=== PATIENT | male | born 1955 | race Caucasian/White ===

== ENCOUNTER → 2016-11-15 | Outpatient (CLI) | payer OTHER ==
[~2016-11-15] VITALS: Ht 172.7 cm; Wt 93.0 kg
[~2016-11-15] MED LIST: ASPIR 8181 MG PO; IMDUR 30 MG TAB30 M1 PO; LIPITOR10 MG PO; NEURONTIN600 MG PO; OXYCONTIN20 M1 PO; TOPROL XL25 MG PO; ZANAFLEX4 MG PO
--- NOTE | ~2016-11-15 | EKG ---
[place] [address] [address] [facility] [place] [address] ELECTROCARDIOGRAM REPORT Name: YESENIA ALLEN [facility] [id number] Admission: 11/15/16 Attend Phys: Richie Valencia MD Discharge: Date of : 51 Report #: [id number] THIS REPORT FOR: //name// [facility] Test Date: 2016-11-15 Test Time: 08:36:49 Pat Name: YESENIA ALLEN Department: Room: Gender: Jewelry Designer: Easton MÉNDEZ : 1955 Requested By: Richie Valencia Order Number: [id number] MD: Manuel Cho Measurements Intervals [place] Rate: 49 P: 47 DC: 190 QRS: 1 QRSD: 85 T: 34 QT: 453 QTc: 409 Interpretive Statements Sinus bradycardia RSR' in V1 or V2, right VCD ST elevation suggests acute pericarditis versus early repolarization No previous ECG available for comparison Electronically Signed On 11-16-2016 8:46:26 CDT by Manuel Cho [email or web address] <ELECTRONICALLY SIGNED> By: Manuel Cho MD, [facility] 11/16/16 0846 5 5 Manuel Cho MD, [facility] /EPI
--- NOTE | ~2016-11-15 | CATHLAB ---
[facility] [address] [place] [address] INVASIVE PROCEDURE REPORT Name: TIFFANYYESENIA CHAKRABORTY Room #: REG Gee#: [id number] Admission: 11/15/16 Attend Phys: Richie Valencia MD Discharge: Date of : 51 Date of Service: 11/15/161821 Report #: [id number] THIS REPORT FOR: //name// APPROVED REPORT Patient Details Patient Status: Out-Patient Room #: The patient is a 61 year-old male Indication Unstable angina Risk Factors Hypercholesterolemia, Hypertension Procedure Narrative The Right Groin^ was infiltrated with 1% Lidocaine subcutaneous anesthesia. A PINNACLE 4FR Sheath #[id number] sheath was inserted into the RFA^. Coronary angiography was performed using coronary diagnostic catheters. The right coronary system was accessed and visualized with a JR4 catheter. The left coronary system was accessed and visualized with a JL4 catheter. The left ventricle was accessed and visualized with a PIGTAIL catheter. Left ventricular/Aortic Valve gradient assessed via catheter pullback. Left ventriculogram was performed in 30 degree projection. Hemostasis was obtained with manual pressure following sheath removal without any complications. The patient tolerated the procedure well and there were no complications associated with the procedure. There was no hematoma. Intraoperative Conscious Sedation Sedation start time: 1120 Case end Time: 113 Fentanyl 50.0 mcg Versed 1.0 mg Fluoro Time: 1.45 minutes Dose: DAP 3931 cGycm2 506 mGy Contrast Type and Amount: Omnipaque 95 ml Coronary Angiography The patient's coronary anatomy is co- dominant. [place] Artery Percent Stenosis Left Main: 0 % Prox LAD: 30 % Mid/Distal LAD: % Circumflex: 20 % RCA: 20 % Ramus: % [facility] [address] [place] [address] INVASIVE PROCEDURE REPORT Name: YESENIA ALLEN Room #: REG COUNT INCLUDES THE [facility]#: [id number] Admission: 11/15/16 Attend Phys: Richie Valencia MD Discharge: Date of : 51 Date of Service: 11/15/161821 Report #: [id number] Diagnostic Cath Diagonal 2 Small-caliber vessel with mild stenosis at the ostium. OM1 Moderate size caliber vessel, with mild stenosis in proximal segment. Hemodynamics The aortic pressure is 165/83 mmHg with a mean of 115 mmHg. The left ventricular pressure is 165/17 mmHg with a mean of mmHg. The left ventricular end diastolic pressure is 35 mmHg. There was no gradient across the aortic valve upon pullback. Pullback from the left ventricle to the aorta revealed no gradient across the aortic valve. Conclusion Mild disease as described above. Recommend medical therapy. Recommendations Medical Therapy <ELECTRONICALLY SIGNED> By: Richie Valencia MD 11/15/161821 21 1822 Richie Valencia MD /INF
[2016-11-15 08:30] LABS: HEMATOCRIT 42.5 % (42.0-52.0); HEMOGLOBIN 14.4 gm/dL (14.0-18.0); MCH 30.2 pg (26.0-34.0); MCHC 33.9 g/dL (28.0-37.0); MCV 89.3 fL (80.0-100.0); RBC 4.76 mil/uL (4.50-6.00); RDW 12.7 % (10.5-14.5); WBC 6.1 thou/uL (4.0-11.0)
[2016-11-15 08:35] VITALS: BP 148/76
[2016-11-15 08:39] LABS: CALCIUM 8.8 mg/dL (8.5-10.1); CREATININE 1.2 mg/dL (0.7-1.3)
== END ==
LOC: CATH 08:01
PROVIDERS: Internal Medicine Cardiovascular Disease
DX: I25.10 Atherosclerotic heart disease of native coronary artery without angina pectoris (principal); I10 Essential (primary) hypertension; E78.00 Pure hypercholesterolemia, unspecified; I25.2 Old myocardial infarction; K21.9 Gastro-esophageal reflux disease without esophagitis; Z87.891 Personal history of nicotine dependence; Z82.49 Family history of ischemic heart disease and other diseases of the circulatory system; Z79.82 Long term (current) use of aspirin; Z79.899 Other long term (current) drug therapy

== ENCOUNTER → 2017-07-11 | Outpatient (CLI) | payer OTHER ==
[2017-07-11 13:48] LABS: CREATININE 1.3 mg/dL (0.7-1.3)
== END ==
LOC: CAT 13:08
PROVIDERS: Family Medicine
DX: M54.2 Cervicalgia (principal); R51 Headache; R06.00 Dyspnea, unspecified; R60.0 Localized edema; M79.9 Soft tissue disorder, unspecified

== ENCOUNTER → 2017-10-07 | Outpatient (CLI) | payer OTHER ==
[2017-10-07 09:15] LABS: CREATININE 1.2 mg/dL (0.7-1.3)
== END ==
LOC: CAT 08:33
PROVIDERS: Family Medicine
DX: J98.4 Other disorders of lung (principal); M48.04 Spinal stenosis, thoracic region; M40.204 Unspecified kyphosis, thoracic region; I25.10 Atherosclerotic heart disease of native coronary artery without angina pectoris; K82.8 Other specified diseases of gallbladder; M25.78 Osteophyte, vertebrae; K76.0 Fatty (change of) liver, not elsewhere classified

== ENCOUNTER → 2018-03-27 | Outpatient (CLI) | payer OTHER | LOC: RAD 15:27 | DX: R07.81 Pleurodynia (principal); R22.42 Localized swelling, mass and lump, left lower limb; M79.9 Soft tissue disorder, unspecified ==

== ENCOUNTER → 2018-04-06 | Outpatient (CLI) | payer OTHER | LOC: RAD 13:58 | DX: S92.251A Displaced fracture of navicular [scaphoid] of right foot, initial encounter for closed fracture (principal); M19.071 Primary osteoarthritis, right ankle and foot; W19.XXXA Unspecified fall, initial encounter; Y93.89 Activity, other specified; Y92.89 Other specified places as the place of occurrence of the external cause; Y99.8 Other external cause status ==

== ENCOUNTER → 2019-02-19 | Outpatient (CLI) | payer OTHER ==
--- NOTE | 2019-02-21 16:09 | PATH ---
[facility] [address] [place] [address] PATHOLOGY RPT PROCEDURE Name: GLENN ALLEN Room #: REG DION Hackett.#: [id number] Admission: 02/19/19 Date of : 51 Discharge: Report #: [id number] Path Case #: [id number] [facility] Accession Number: [id number] . 01 Material submitted: . PART A: stomach - RANDOM GASTRIC BIOPSY R/O H PYLORI PART B: esophagus - DISTAL ESOPHAGUS H/O BARRETTS. Modifiers: distal PART C: esophagus - DISTAL ESOPHAGUS NODULE. Modifiers: distal PART D: colon - SIGMOID COLON POLYP. Modifiers: sigmoid . 01 Clinical history: . Pre-op diagnosis: GERD; history of Davis's; screening Post-op diagnosis: Esophageal nodule; polyps A. R/O H. pylori B. History of Davis's . 02 Diagnosis: A. Gastric mucosa, random gastric R/O H. pylori, endoscopic biopsy: - Mild reactive gastropathy. - Negative for intestinal metaplasia or atrophy. - Negative for Helicobacter pylori (properly controlled immunohistochemical stain performed). . B. Gastroesophageal mucosa, distal esophagus H/O Davis's, endoscopic biopsy: - Specialized columnar epithelium (gastric-type mucosa) with intestinal metaplasia, consistent with the provided history of Davis's metaplasia. - Negative for dysplasia. - Squamous mucosa with mild esophagitis. . C. Squamous mucosa, distal esophagus nodule, endoscopic biopsy: - Compatible with a benign squamous papilloma. - Negative for dysplasia or malignancy. . D. Polyp, sigmoid colon polyp, endoscopic biopsy: - One fragment showing tubulovillous adenoma; negative for high-grade dysplasia. - Remainder of fragments showing hyperplastic polyp without any dysplasia. (IUV:arlene; 02/21/2019) QMS 02/21/2019 1345 Local . 02 Electronically signed: . Leonela Spears MD, Pathologist NPI- [id number] . 01 Gross description: . A. The specimen is received in formalin, labeled "ayo Webb [address] [address] PATHOLOGY RPT PROCEDURE Name: GLENN ALLEN Room #: REG CL Gee#: [id number] Admission: 02/19/19 Date of : 51 Discharge: Report #: [id number] Path Case #: [id number] gastric biopsy". Received are seven segments of pale chavez soft tissue ranging in size from 0.3 to 0.6 cm in maximum dimensions. The specimen is submitted entirely in cassette A1. . B. The specimen is received in formalin, labeled "Glenn Tyree, distal esophagus". Received are seven segments of pale chavez soft tissue ranging in size from 0.3 to 0.4 cm in maximum dimensions. The specimen is submitted entirely in cassette B1. . C. The specimen is received in formalin, labeled "Glenn Tyree, distal esophagus nodule". Received is a segment of pale chavez soft tissue measuring 0.4 cm in maximum dimensions. The specimen is submitted entirely in cassette C1. . D. The specimen is received in formalin, labeled "Glennmukund Allen, sigmoid colon polyp". Received are three segments of pale chavez soft tissue ranging in size from 0.5 to 0.8 cm in maximum dimensions. The specimen is submitted entirely in cassette D1. (CAA; 02/20/2019) QAC/QAC 02/20/2019 0909 Local . 02 Pathologist provided ICD-10: K31.9, K22.70, D13.0, D12.5 . 02 CPT . 496116, 723010, 102430, 464050, G04420 Specimen Comment: A courtesy copy of this report has been sent to Specimen Comment: [phone], . Specimen Comment: Report sent to / DR BAIRD Performed at: [address], [place] [id number] MD Curt James MD Phone: [phone] Performed at: [address] [id number] MD Leonela Spears MD Phone: [phone]
== END | disposition home or self-care (01) ==
LOC: GI 08:59
DX: Z12.11 Encounter for screening for malignant neoplasm of colon (principal); D12.5 Benign neoplasm of sigmoid colon; K64.8 Other hemorrhoids; D13.0 Benign neoplasm of esophagus; K31.9 Disease of stomach and duodenum, unspecified; K22.70 Barrett's esophagus without dysplasia; K21.0 Gastro-esophageal reflux disease with esophagitis; K25.9 Gastric ulcer, unspecified as acute or chronic, without hemorrhage or perforation; I10 Essential (primary) hypertension; E78.00 Pure hypercholesterolemia, unspecified; I25.2 Old myocardial infarction; F32.9 Major depressive disorder, single episode, unspecified; F41.9 Anxiety disorder, unspecified; Z98.890 Other specified postprocedural states; Z79.899 Other long term (current) drug therapy; Z79.82 Long term (current) use of aspirin
CPT/HCPCS: 62110; 62900

== ENCOUNTER → 2019-02-23 | Outpatient (CLI) | payer OTHER | LOC: NUC 09:37 | DX: M81.0 Age-related osteoporosis without current pathological fracture (principal) ==

== ENCOUNTER → 2020-02-29 | Outpatient (CLI) | payer OTHER | LOC: SJCVC 12:55 | PROVIDERS: ATTEND Internal Medicine Cardiovascular Disease | DX: I25.10 Atherosclerotic heart disease of native coronary artery without angina pectoris (principal); R94.31 Abnormal electrocardiogram [ECG] [EKG]; I10 Essential (primary) hypertension; E78.5 Hyperlipidemia, unspecified; K21.9 Gastro-esophageal reflux disease without esophagitis; Z79.899 Other long term (current) drug therapy; Z87.891 Personal history of nicotine dependence ==

== ENCOUNTER → 2020-03-07 | Outpatient (CLI) | payer OTHER | LOC: SJCVCIMAG 07:47 | PROVIDERS: ATTEND Internal Medicine Cardiovascular Disease | DX: I25.10 Atherosclerotic heart disease of native coronary artery without angina pectoris (principal); R00.0 Tachycardia, unspecified; I10 Essential (primary) hypertension; E78.5 Hyperlipidemia, unspecified; K21.9 Gastro-esophageal reflux disease without esophagitis; Z79.899 Other long term (current) drug therapy; Z87.891 Personal history of nicotine dependence ==

== ENCOUNTER 2020-04-02 09:44 | Inpatient (IN) | payer OTHER ==
[~2020-04-02] VITALS: Ht 170.2 cm; Wt 91.6 kg
[~2020-04-02 09:44] MED LIST changes: -NEURONTIN600 MG PO
[2020-04-02 09:46] VITALS: BP 91/43
[2020-04-02 10:22] LABS: BASOPHILS 0.7 % (0.0-2.0); EOSINOPHILS 0.4 % (0.0-3.0); HEMATOCRIT 37.4 % (42.0-52.0); HEMOGLOBIN 12.5 gm/dL (14.0-18.0); LYMPHOCYTES 14.4 % (24.0-44.0); MCH 30.8 pg (26.0-34.0); MCHC 33.3 g/dL (28.0-37.0); MCV 92.3 fL (80.0-100.0); MONOCYTES 5.7 % (1.0-8.0); POLYS 78.8 % (36.0-66.0); RBC 4.05 mil/uL (4.50-6.00); RDW 13.3 % (10.5-14.5); WBC 5.1 thou/uL (4.0-11.0)
[2020-04-02 10:42] LABS: ANION GAP 9 mmol/L (7-16); BUN 23 mg/dL (7-18); CALCIUM 8.6 mg/dL (8.5-10.1); CHLORIDE 104 mmol/L (98-107); CO2 24 mmol/L (21-32); CREATININE 2.2 mg/dL (0.7-1.3); GLUCOSE 116 mg/dL (74-106); POTASSIUM 4.4 mmol/L (3.5-5.1); SODIUM 137 mmol/L (136-145)
[2020-04-02 10:53] LABS: ALBUMIN 3.5 g/dL (3.4-5.0); MAGNESIUM 1.9 mg/dL (1.8-2.4); SGOT 44 U/L (15-37); SGPT 46 U/L (30-65); TOTAL BILIRUBIN 0.8 mg/dL (0.2-1.0); TOTAL PROTEIN 6.4 g/dL (6.4-8.2); TROPONIN-I <0.06 ng/mL (<0.06)
[2020-04-02] MEDS ORDERED: COZAAR 50 MG TA50 M1 PO (11:08)
[2020-04-02] MEDS ORDERED: OMEPRAZOLE40 MG PO (11:08)
[2020-04-02] MEDS ORDERED: LIPITOR40 MG PO (11:09)
[2020-04-02] MEDS ORDERED: CARVEDILOL12.5 MG PO (11:09)
[2020-04-02] MEDS ORDERED: NEURONTIN600 MG PO (11:40)
[2020-04-02 11:47] LABS: PLATELET COUNT 94 thou/uL (150-400); PLATELET ESTIMATE SLIGHTLY DECREASED
[2020-04-02 11:48] LABS: LARGE PLATELETS OCCASIONAL
[2020-04-02 12:34] LABS: URINE BILIRUBIN NEGATIVE (Negative); URINE BLOOD NEGATIVE (Negative); URINE CLARITY CLEAR; URINE COLOR YELLOW; URINE GLUCOSE-RANDOM* NEGATIVE (Negative); URINE KETONES NEGATIVE (Negative); URINE LEUKOCYTES-REFLEX NEGATIVE (Negative); URINE NITRITE-REFLEX NEGATIVE (Negative); URINE PROTEIN (DIPSTICK) NEGATIVE (Negative); URINE SPECIFIC GRAVITY 1.025 (1.005-1.035); URINE UROBILINOGEN 0.2 E.U./dl (0.2-1.0)
[2020-04-02 12:42] LABS: AMP/METHAMP Negative (Negative); BARBITURATES Negative (Negative); BENZODIAZEPINES Negative (Negative); COCAINE Negative (Negative); METHADONE Negative (Negative); OPIATES POSITIVE (Negative); PCP Negative (Negative)
[2020-04-02 14:45] VITALS: BP 80/50
[2020-04-02 15:10] VITALS: BP 135/63
[2020-04-02 15:17] LABS: FOLIC ACID 37.7 ng/mL (8.6-58.9)
--- NOTE | 2020-04-02 17:54 | NUR ---
ATTEMPTED TO CALL REPORT AT 6260. NURSE STATES SHE WILL CALL BACK.
[2020-04-02 18:27] VITALS: BP 135/89
[2020-04-02 19:00] VITALS: BP 113/55
[2020-04-02 23:21] VITALS: BP 137/62
[2020-04-03] VITALS (7 sets, daily range): BP systolic 82–150; BP diastolic 46–84
--- NOTE | 2020-04-03 05:47 | NUR ---
ASSUME CARE 1900. PT/VITALS STABLE. INTERMITTENT GENERALIZED PAIN NOTED WITH RELIEF FROM PAIN MEDICATION. TOLERATES ACTIVITY WELL. NO BRDYCARDIA NOTED/SR THROUGH THE SHIFT. NO DISTRESS NOTED. ASSESSMENT CHARTED. PROGRESSING WELL WITH POC. PLAN IS TO CONTINUE TO MONITOR HR AND MANAGE PAIN. WILL CONTINUE TO FOLLOW WITH POC
--- NOTE | 2020-04-03 07:06 | EKG ---
[facility] [place] [address] [address] [place] [address] ELECTROCARDIOGRAM REPORT Name: YESENIA ALLEN Room #: 203-P ADM IN M.R.#: [id number] Admission: 04/02/20 Attend Phys: George Gabriel MD Discharge: Date of : 51 Report #: [id number] THIS REPORT FOR: cc: Verito Gomez MD, Nora P. MD Santiago, Patrick MD [facility] ~ THIS REPORT FOR: //name// [facility] ED Test Date: 2020-04-02 Test Time: 10:13:53 Pat Name: YESENIA ALLEN Department: Room: 203 Gender: M Psychiatric Nurse Practitioner: EC : 1955 Requested By: Ramírez Escobar Order Number: [id number] MD: Alen Rhoades Measurements Intervals [place] Rate: 51 P: 20 MD: 177 QRS: 0 QRSD: 101 T: 29 QT: 484 QTc: 446 Interpretive Statements Sinus rhythm Borderline ST elevation, lateral leads Compared to ECG 11/15/2016 08:36:49 Sinus bradycardia no longer present Early repolarization no longer present ST (T wave) deviation still present Electronically Signed On 04-03-2020 7:06:16 MELT SUPERINTENDANT by Alen Rhoades [email or web address] <ELECTRONICALLY SIGNED> By: Alen Rhoades MD, FACC 04/03/20 0706 1013 1013 Alen Rhoades MD, FACC /EPI
[2020-04-03 09:01] LABS: CALCIUM 8.2 mg/dL (8.5-10.1); POTASSIUM 4.4 mmol/L (3.5-5.1)
[2020-04-03 09:08] LABS: CREATININE 1.2 mg/dL (0.7-1.3)
--- NOTE | 2020-04-03 13:23 | NUR ---
I have reviewed the documentation by JC RICHMOND from 04/03/20 to 04/03/20 and I concur with it. LARRY IBARRA, PT, DPT
[2020-04-04 01:30] VITALS: BP 153/75
--- NOTE | 2020-04-04 01:58 | NUR ---
PT ALERT AND ORIENTED WITH PERIODS OF FORGETFULNESS TO CORRECT PLACE AND DATE ETC. PRESENTLY HE IS ALERT AND APPROPRIATE. INSTRUCTED ON FALL PRECAUTIONS AND NOT TO GET OOB WITHPUT HELP. BP MODERATELY LOW.NS AT 100 STARTED ORDERED.
[2020-04-04 04:16] VITALS: BP 161/84
[2020-04-04 06:10] LABS: ABSOLUTE NEUTROPHILS 5.4 thou/uL (1.4-8.2); BASOPHILS 0.1 % (0.0-2.0); HEMATOCRIT 39.1 % (42.0-52.0); LYMPHOCYTES 8.9 % (24.0-44.0); MCH 30.4 pg (26.0-34.0); MCHC 33.2 g/dL (28.0-37.0); MCV 91.8 fL (80.0-100.0); MONOCYTES 1.6 % (1.0-8.0); PLATELET COUNT 120 thou/uL (150-400); POLYS 89.4 % (36.0-66.0); RBC 4.25 mil/uL (4.50-6.00); RDW 13.1 % (10.5-14.5); WBC 6.1 thou/uL (4.0-11.0)
--- NOTE | 2020-04-04 06:36 | NUR ---
PT PROGRESSING SLOWLY TOWARDS D/C. AFEBRILE . WILL START REMDESIVIR WHEN AVAILABLE.
[2020-04-04 06:40] LABS: ALBUMIN 3.3 g/dL (3.4-5.0); CALCIUM 8.8 mg/dL (8.5-10.1); CREATININE 1.2 mg/dL (0.7-1.3); POTASSIUM 4.2 mmol/L (3.5-5.1); TOTAL BILIRUBIN 0.5 mg/dL (0.2-1.0); TOTAL PROTEIN 7.1 g/dL (6.4-8.2)
--- NOTE | 2020-04-04 09:39 | NUR ---
ORDERS FOR EVAL AND TREAT. Pt SEEN RIGHT AFTER O.T. WHO STATES THEY ARE GOING TO SIGN OFF ON HIM. SPOKE TO Pt WHO DENIES ANY PROBLEMS WITH STRENGTH OR MOBILITY AND FEELS SAFE WALKING. OBSERVED Pt AMBULATE TO BATHROOM WITHOUT DIFFICULTY. Pt DECLINING FORMAL P.T. EVAL BUT APPEARS SAFE FOR HOME WHEN MEDICALLY CLEAR
[2020-04-04 15:17] VITALS: BP 167/90
--- NOTE | 2020-04-04 15:21 | NUR ---
INITIAL ASSESSMENT: SW reviewed chart and spoke with nursing and attending physician. Pt was admitted from home. Placed in Enhanced Isolation due to COVID-19. Pt has been febrile and on 2L of O2. Pt is on IV abx and IV steroids. Pt started on Remdesivir. No weekend discharge anticipated. SW spoke with pt via phone. Introduced role of SW. Pt is alert/orientated x 4. Pt reports he lives at home with his and family. Prior to admission, pt was independent with ADLs. Pt does have DME to use if needed. Pt's PCP is Dr. Verito Gomez. Pt goes to outpatient follow up with a pain clinic. Pt denies having any discharge needs and is hoping to discharge home over the weekend. ELLIE is following to assist as needed iwth dishcarge planning.
[2020-04-04 19:30] VITALS: BP 175/90
[2020-04-05 03:25] VITALS: BP 172/76
[2020-04-05 07:36] LABS: HEMATOCRIT 39.5 % (42.0-52.0); HEMOGLOBIN 13.2 gm/dL (14.0-18.0); MCH 30.1 pg (26.0-34.0); MCHC 33.5 g/dL (28.0-37.0); MCV 89.9 fL (80.0-100.0); RBC 4.39 mil/uL (4.50-6.00); RDW 12.9 % (10.5-14.5); WBC 13.6 thou/uL (4.0-11.0)
[2020-04-05 07:45] LABS: ALBUMIN 3.5 g/dL (3.4-5.0); CALCIUM 9.9 mg/dL (8.5-10.1); CREATININE 1.1 mg/dL (0.7-1.3); DIRECT BILIRUBIN 0.1 mg/dL (<0.1-0.2); PHOSPHORUS 2.4 mg/dL (2.5-4.9); POTASSIUM 3.5 mmol/L (3.5-5.1); TOTAL BILIRUBIN 0.3 mg/dL (0.2-1.0); TOTAL PROTEIN 7.4 g/dL (6.4-8.2)
--- NOTE | 2020-04-05 07:50 | NUR ---
PROGRESS PT A/O X4 UP WITH SBA VOIDING PER URINAL. REPORTS A STOMACH ACHE FROM NOT TAKING HIS OMEPRAZOLE, ORDER FOR TUMS OBTAINED GIVEN WITH SOME EFFECT. REPORTED TO HANNAH SAXENA THAT PT IS REQUESTING PEPCID OR PROTONIX ORDER FOR PEPCID 20 MG PO BID OBTAINED. DIET CHANGED TO SOFT BECAUSE PT HAS NO TEETH AND IS HAVING DIFFICULTY CHEWING.CONTINUE TO MONITOR.
[2020-04-05 08:49] VITALS: BP 159/86
[2020-04-05 12:50] VITALS: BP 151/88
[2020-04-05 18:14] VITALS: BP 152/91
--- NOTE | 2020-04-05 18:41 | NUR ---
progressing towards poc goals.
[2020-04-05 19:37] VITALS: BP 15/88
--- NOTE | 2020-04-05 23:03 | NUR ---
PT RESTING QUIETLY. VSS. C/O BACK PAIN/ MEDICATED WITH OXYCODONE AND MUSCLE RELAXER. BED DOWN CALL LIGHT IN REACH. WILL CONTINUE TO MONITOR PT FOR CHANGES.
[2020-04-06 02:57] LABS: HEMATOCRIT 36.1 % (42.0-52.0); HEMOGLOBIN 12.1 gm/dL (14.0-18.0); MCH 30.4 pg (26.0-34.0); MCHC 33.5 g/dL (28.0-37.0); MCV 90.8 fL (80.0-100.0); RBC 3.97 mil/uL (4.50-6.00); RDW 13.1 % (10.5-14.5); WBC 11.3 thou/uL (4.0-11.0)
[2020-04-06 03:03] LABS: ALBUMIN 2.9 g/dL (3.4-5.0); CALCIUM 8.9 mg/dL (8.5-10.1); CREATININE 1.1 mg/dL (0.7-1.3); DIRECT BILIRUBIN 0.1 mg/dL (<0.1-0.2); PHOSPHORUS 1.7 mg/dL (2.5-4.9); POTASSIUM 3.4 mmol/L (3.5-5.1); TOTAL BILIRUBIN 0.3 mg/dL (0.2-1.0); TOTAL PROTEIN 6.4 g/dL (6.4-8.2)
[2020-04-06 04:48] VITALS: BP 168/93
[2020-04-06 05:18] VITALS: BP 144/52
--- NOTE | 2020-04-06 06:29 | NUR ---
Pt progressing well towards d/c goals. Unlabored on RA. sleeping after pain pills given for back pain.
[2020-04-06 09:07] VITALS: BP 172/81
[2020-04-06 16:12] VITALS: BP 150/87
--- NOTE | 2020-04-06 18:48 | NUR ---
PATIENT ROGRESSING TOWARDS POC GOALS. MAY DC TO HOME TOMORROW.
[2020-04-06 20:38] VITALS: BP 177/86
[2020-04-07 04:20] VITALS: BP 148/79
[2020-04-07 05:51] LABS: HEMATOCRIT 36.2 % (42.0-52.0); HEMOGLOBIN 12.2 gm/dL (14.0-18.0); MCH 30.6 pg (26.0-34.0); MCHC 33.8 g/dL (28.0-37.0); MCV 90.4 fL (80.0-100.0); WBC 6.7 thou/uL (4.0-11.0)
[2020-04-07 06:20] LABS: ALBUMIN 2.9 g/dL (3.4-5.0); CALCIUM 8.8 mg/dL (8.5-10.1); CREATININE 1.1 mg/dL (0.7-1.3); DIRECT BILIRUBIN 0.1 mg/dL (<0.1-0.2); PHOSPHORUS 3.1 mg/dL (2.5-4.9); TOTAL BILIRUBIN 0.5 mg/dL (0.2-1.0); TOTAL PROTEIN 6.2 g/dL (6.4-8.2)
--- NOTE | 2020-04-07 06:41 | NUR ---
VSS OVERNIGHT. PT UP AD MIKE AND DEMANDING THAT BED ALARM NOT BE SET. FOLLOW POC WITH PAIN CONTROL. PT HAD NO OTHER COMPLAINTS.
[2020-04-07] MEDS ORDERED: CEFDINIR300 MG PO (08:31)
[2020-04-07] MEDS ORDERED: PREDNISONE 10 M10 M1 PO (08:32)
[2020-04-07 08:53] VITALS: BP 155/75
[2020-04-07 11:27] VITALS: BP 155/75
--- NOTE | 2020-04-07 16:19 | NUR ---
DISCHARGE NOTE: SW reviewed chart and spoke with nursing and attending physician. Pt remains in Enhanced Isolation due to COVID-19. Pt is medically stable for discharge home today. SW spoke with pt via phone to discuss discharge plan. Pt denies having any discharge needs at this time. Pt's family to provide transportation home. No additional SW needs identified at this time, but is available to assist should needs arise.
== END 2020-04-07 12:30 | disposition home or self-care (01) | DRG 177 ==
LOC: ER 09:44 → 2N 14:40 → EROBS 14:40 → 3W 14:40 → 2N 18:19 → 3W 04-03 16:33
PROVIDERS: Emergency Medicine; Nurse Practitioner; Specialist; ADMIT Hospitalist; ATTEND Hospitalist
PROC: XW033E5 Introduction of Remdesivir Anti-infective into Peripheral Vein, Percutaneous Approach, New Technology Group 5 (ICD-10-PCS; principal; 2020-04-03)
DX: U07.1 COVID-19 (principal); J12.89 Other viral pneumonia; N17.9 Acute kidney failure, unspecified; I95.9 Hypotension, unspecified; R55 Syncope and collapse; E78.5 Hyperlipidemia, unspecified; I10 Essential (primary) hypertension; E78.00 Pure hypercholesterolemia, unspecified; G89.4 Chronic pain syndrome; I25.10 Atherosclerotic heart disease of native coronary artery without angina pectoris; T50.995A Adverse effect of other drugs, medicaments and biological substances, initial encounter; M54.9 Dorsalgia, unspecified; Z79.82 Long term (current) use of aspirin; Z79.899 Other long term (current) drug therapy; Z87.891 Personal history of nicotine dependence; Y92.89 Other specified places as the place of occurrence of the external cause; Z23 Encounter for immunization
CPT/HCPCS: 10081; 10779

== ENCOUNTER → 2020-04-29 | Outpatient (CLI) | payer OTHER ==
[~2020-04-29] MED LIST changes: +CARVEDILOL12.5 MG PO; +CEFDINIR300 MG PO; +COZAAR 50 MG TA50 M1 PO; +LIPITOR40 MG PO; +NEURONTIN600 MG PO; +OMEPRAZOLE40 MG PO; +PREDNISONE 10 M10 M1 PO
== END ==
LOC: SJCVC 13:46
PROVIDERS: ATTEND Internal Medicine Cardiovascular Disease
DX: I25.10 Atherosclerotic heart disease of native coronary artery without angina pectoris (principal); R94.31 Abnormal electrocardiogram [ECG] [EKG]; R00.0 Tachycardia, unspecified; I10 Essential (primary) hypertension; E78.5 Hyperlipidemia, unspecified; K21.9 Gastro-esophageal reflux disease without esophagitis; G89.29 Other chronic pain; M81.0 Age-related osteoporosis without current pathological fracture; E78.00 Pure hypercholesterolemia, unspecified; Z79.82 Long term (current) use of aspirin; Z79.899 Other long term (current) drug therapy; Z87.891 Personal history of nicotine dependence

== ENCOUNTER → 2020-05-26 | Outpatient (CLI) | payer OTHER | LOC: SJCVCIMAG 10:04 | PROVIDERS: ATTEND Internal Medicine Cardiovascular Disease | DX: I25.10 Atherosclerotic heart disease of native coronary artery without angina pectoris (principal); R53.83 Other fatigue; I10 Essential (primary) hypertension; R06.00 Dyspnea, unspecified; Z86.16 Personal history of COVID-19 ==

== ENCOUNTER → 2020-06-18 | Outpatient (CLI) | payer OTHER ==
[~2020-06-18] MED LIST changes: +B COMPLEX1 EACH PO; +BRINTELLIX10 MG PO; +FISH OIL 1,0001 EAC9 PO; +MAGNESIUM250 M1 PO; +MULTI VITAMIN1 EACH PO; +VITAMIN D350 MC3 PO
== END ==
LOC: LAB 14:17
PROVIDERS: ATTEND Internal Medicine Gastroenterology
DX: Z01.812 Encounter for preprocedural laboratory examination (principal); Z20.822 Contact with and (suspected) exposure to COVID-19

== ENCOUNTER → 2020-06-23 | Outpatient (CLI) | payer OTHER ==
[~2020-06-23] VITALS: Ht 170.2 cm; Wt 93.0 kg
--- NOTE | 2020-06-25 18:06 | PATH ---
[facility] [address] [address] PATHOLOGY RPT PROCEDURE Name: GLENN ALLEN Room #: REG DION Hackett.#: [id number] Admission: 06/23/20 Date of : 51 Discharge: Report #: [id number] Path Case #: [id number] [facility] Accession Number: [id number] . 01 Material submitted: . PART A: gastrointestinal site - RANDOM ESOPHAGEAL R/O EOSINOPHILIC ESOPHAGITIS PART B: gastrointestinal site - ESOPHAGEAL BIOPSY . 01 Clinical history: . BARRETTS, GERD HISTORY OF BARRETTS . 02 Diagnosis: A. Esophagus "random", endoscopic biopsy: - Hyperplastic/reactive esophageal squamous mucosa. - Negative for increased eosinophils, intestinal metaplasia, dysplasia and malignancy. . B. Esophagus "history of Davis's", endoscopic biopsy: - Esophageal squamous and gastric cardia mucosa with intestinal metaplasia (Davis's esophagus). - Negative for dysplasia and malignancy. . (RENNY:tabitha; 06/25/2020) MBR 06/25/2020 1736 Local . 02 Electronically signed: . Rayne Hardin MD, Pathologist NPI- [id number] . 01 Gross description: . A. The specimen is received in formalin, labeled "Glenn Allen, biopsy random esophageal, R/O eosinophilic esophagitis". Received are four segments of pale chavez soft tissue ranging in size from 0.2 to 0.3 cm in maximum dimensions. The specimen is submitted entirely in cassette A1. . B. The specimen is received in formalin, labeled "Glenn Allen, biopsy esophageal, history of Davis's". Received are two segments of pale chavez soft tissue ranging in size from 0.3 to 0.4 cm in maximum dimensions. The specimen is submitted entirely in cassette B1. (CAA; 06/24/2020) QA/QA 06/24/2020 1246 Local . 02 Pathologist provided ICD-10: K22.70, K22.9 . 02 [place] [address] PATHOLOGY RPT PROCEDURE Name: GLENN ALLEN Room #: REG [facility] Lew.#: [id number] Admission: 06/23/20 Date of : 51 Discharge: Report #: [id number] Path Case #: [id number] [facility] . [id number], [id number] Specimen Comment: Report sent to Performed at: [address], [place], [place] [id number] MD Jethro Barajas MD Phone: [phone] Performed at: [address] [id number] MD Leonela Spears MD Phone: [phone]
== END | disposition home or self-care (01) ==
LOC: GI 07:04
PROVIDERS: ATTEND Internal Medicine Gastroenterology
DX: R13.10 Dysphagia, unspecified (principal); K22.70 Barrett's esophagus without dysplasia; K22.9 Disease of esophagus, unspecified; K21.9 Gastro-esophageal reflux disease without esophagitis; I10 Essential (primary) hypertension; E78.5 Hyperlipidemia, unspecified; M54.5 Low back pain; M54.9 Dorsalgia, unspecified; I25.10 Atherosclerotic heart disease of native coronary artery without angina pectoris; Z98.890 Other specified postprocedural states; Z79.899 Other long term (current) drug therapy; Z87.19 Personal history of other diseases of the digestive system; Z87.891 Personal history of nicotine dependence; Z88.8 Allergy status to other drugs, medicaments and biological substances; Z79.82 Long term (current) use of aspirin
CPT/HCPCS: 62110; 62900

== ENCOUNTER → 2020-07-07 | Outpatient (CLI) | payer OTHER | LOC: ULTRA 11:56 | PROVIDERS: ATTEND Family Medicine | DX: R22.42 Localized swelling, mass and lump, left lower limb (principal); M79.89 Other specified soft tissue disorders ==

== ENCOUNTER → 2020-11-10 | Outpatient (CLI) | payer OTHER | LOC: CAT 14:12 | DX: M47.12 Other spondylosis with myelopathy, cervical region (principal); M47.22 Other spondylosis with radiculopathy, cervical region ==

== ENCOUNTER → 2020-11-24 | Outpatient (CLI) | payer OTHER | LOC: SJCVC 13:03 | PROVIDERS: ATTEND Internal Medicine Cardiovascular Disease | DX: R94.31 Abnormal electrocardiogram [ECG] [EKG] (principal); I10 Essential (primary) hypertension; I25.10 Atherosclerotic heart disease of native coronary artery without angina pectoris; E78.5 Hyperlipidemia, unspecified; R06.09 Other forms of dyspnea; K21.9 Gastro-esophageal reflux disease without esophagitis; M81.0 Age-related osteoporosis without current pathological fracture; Z87.891 Personal history of nicotine dependence; Z72.89 Other problems related to lifestyle; Z79.82 Long term (current) use of aspirin; Z79.899 Other long term (current) drug therapy; Z88.8 Allergy status to other drugs, medicaments and biological substances ==